=== PATIENT | male | born 1945 | race Caucasian/White ===

== ENCOUNTER → 2016-11-30 | Outpatient (CLI) | payer OTHER, BC ==
[~2016-11-30] MED LIST: ASPI81TA28 PO; CEFT1INJ57 IV; CLC100X PO; CRS/10 PO; CRS20 PO; CYCL5TAB PO; HYDR-5688 PO; METO25TA56 PO; NAPR-1169 PO
== END | disposition home or self-care (01) ==
LOC: C.LAB1850 10:09
PROVIDERS: ATTEND Internal Medicine Pulmonary Disease
DX: N40.0 Benign prostatic hyperplasia without lower urinary tract symptoms (principal); M25.539 Pain in unspecified wrist; M67.40 Ganglion, unspecified site

== ENCOUNTER 2016-12-22 16:20 | Emergency (ER) | payer OTHER, BC ==
[~2016-12-22] VITALS: Ht 177.8 cm; Wt 91.0 kg
[~2016-12-22 16:20] MED LIST changes: -CRS/10 PO
[2016-12-22 16:26] VITALS: TEMP 36.6; Ht 177.8 cm; Wt 91.0 kg
[2016-12-22] MEDS ORDERED: CEFAZOLIN IV 2,000 MG in DEXTROSE 5% 50ML 50 ML IV STA (16:28)
[2016-12-22] MEDS ORDERED: DIPHTHERIA/TETANUS/PERTUSSIS 0.5 ML SYR/VIAL IM. ONE (16:30)
[2016-12-22] MEDS ORDERED: FENTANYL CITRATE INJ 50 MCG/1 ML 2 ML VIAL IV ONE (16:30)
--- NOTE | 2016-12-22 16:39 | EMERGENCY ROOM VISIT NOTE ---
ED Visit Note First contact with patient: 16:27 CHIEF COMPLAINT: Finger injury HISTORY OF PRESENT ILLNESS: This 71-year-old male patient presents to the emergency department with his after injuring the right thumb approximately one hour ago. Patient states he was working on his tractor, caught the tip of his thumb in the hydraulics, causing a partial amputation. Patient states the tip of his thumb was left at home. Patient is actively bleeding from the thumb and holding pressure with his left hand.. The patient rates the pain as throbbing and 8/10. Patient denies numbness or tingling. She has no other injuries. The patient has not had previous fracture to this finger. The patient has taken nothing for the pain. Tetanus is not up-to-date. Patient is right-hand dominant. REVIEW OF SYSTEMS: A 6 system review of systems was completed with positives and pertinent negatives in the HPI. ALLERGIES: See chart MEDICATIONS: See chart PMH: See chart SOCIAL HISTORY: See chart PHYSICAL EXAM: Vital Signs: Reviewed Nurse's notes, vital signs stable. GENERAL : Pleasant and cooperative, in no acute distress, but appears to be in pain, well-developed, well-nourished. MUSCULOSKELETAL: There is partial indication of the distal portion of the right thumb, exposed bone and tendon, active bleeding but not pulsatile. The patient has intact flexion and intact extension of the right thumb, strength against resistance is diminished due to pain. Sensation intact on all aspects of the thumb, slightly diminished on the palmar side. No tenderness of the remaining fingers or hand. Full range of motion of the wrist. NEURO: Alert and oriented to person, place, and time. Normal sensation to light and sharp touch. EMERGENCY DEPARTMENT COURSE: I examined the patient. An x-ray of the right thumb was reviewed by myself and radiology and showed comminuted bone fragments of the distal phalanx with intra-articular fracture involving the proximal phalanx. IV was placed, 2 g IV Ancef given for treatment of open fracture, tetanus updated. Bleeding currently controlled with a pressure dressing. IV fentanyl given for pain with good improvement on reassessment. Patient discussed with Dr. Conteh, who agrees with my assessment and plan. I spoke with Dr. Ramos, orthopedics, who saw the patient at bedside for further management of the amputation, please see his dictation for further information of ongoing management and treatment. Take-Home packs of Keflex and Percocet provided to the patient at discharge per request of Dr. Ramos. Ongoing Rx provided by [facility]. DISPOSITION: Patient will most likely be discharged home after evaluation and treatment by orthopedics. Current/Historical Medications Scheduled Aspirin (Aspirin Ec), 81 MG PO DAILY Docusate Sodium (Docusate Sodium), 100 MG PO QPM Metoprolol Tartrate (Lopressor) (Lopressor), 12.5 MG PO BID Rosuvastatin Calcium (Crestor), 10 MG PO DAILY Allergies Coded Allergies: Thimerosal (Verified Allergy, Unknown, unk, 05/12/16) Vital Signs Date Time Temp Pulse Resp B/P (MAP) Pulse Ox O2 Delivery O2 Flow Rate FiO2 12/22/16 16:26 36.6 97 22 162/99 97 Room Air Laboratory Results 12/22/16 16:35 Red Blood Count 5.24, Mean Corpuscular Volume 92.2, Mean Corpuscular Hemoglobin 29.0, Mean Corpuscular Hemoglobin Concent 31.5, Mean Platelet Volume 9.3, Neutrophils (%) (Auto) 60.5, Lymphocytes (%) (Auto) 22.3, Monocytes (%) (Auto) 12.6, Eosinophils (%) (Auto) 3.6, Basophils (%) (Auto) 0.9, Neutrophils # (Auto ) 4.06, Lymphocytes # (Auto) 1.50, Monocytes # (Auto) 0.85, Eosinophils # (Auto ) 0.24, Basophils # (Auto) 0.06 12/22/16 16:35 Test 12/22/16 16:35 White Blood Count 6.72 K/uL (4.8-10.8) Red Blood Count 5.24 M/uL (4.7-6.1) Hemoglobin 15.2 g/dL (14.0-18.0) Hematocrit 48.3 % (42-52) Mean Corpuscular Volume 92.2 fL (80-100) Mean Corpuscular Hemoglobin 29.0 pg (25-34) Mean Corpuscular Hemoglobin Concent 31.5 g/dl (32-36) Platelet Count 230 K/uL (130-400) Mean Platelet Volume 9.3 fL (7.4-10.4) Neutrophils (%) (Auto) 60.5 % Lymphocytes (%) (Auto) 22.3 % Monocytes (%) (Auto) 12.6 % Eosinophils (%) (Auto) 3.6 % Basophils (%) (Auto) 0.9 % Neutrophils # (Auto) 4.06 K/uL (1.4-6.5) Lymphocytes # (Auto) 1.50 K/uL (1.2-3.4) Monocytes # (Auto) 0.85 K/uL (0.11-0.59) Eosinophils # (Auto) 0.24 K/uL (0-0.5) Basophils # (Auto) 0.06 K/uL (0-0.2) RDW Standard Deviation 44.9 fL (36.4-46.3) RDW Coefficient of Variation 13.2 % (11.5-14.5) Immature Granulocyte % (Auto) 0.1 % Immature Granulocyte # (Auto) 0.01 K/uL (0.00-0.02) Prothrombin Time 10.5 SECONDS (9.0-12.0) Prothromb Time International Ratio 1.0 (0.9-1.1) Activated Partial Thromboplast Time 28.5 SECONDS (21.0-31.0) Partial Thromboplastin Ratio 1.1 Anion Gap 9.0 mmol/L (3-11) Est Creatinine Clear Calc Drug Dose 79.4 ml/min Estimated GFR () 92.9 Estimated GFR (Non- 80.1 BUN/Creatinine Ratio 24.9 (10-20) Calcium Level 8.9 mg/dl (8.5-10.1) Medications Administered Medications (Trade) Dose Ordered Sig/Matthias Route Start Time Stop Time Status Last Admin Dose Admin Fentanyl Citrate (Fentanyl Inj) 50 mcg NOW ONCE IV 12/22/16 16:30 12/22/16 16:32 DC 12/22/16 16:40 50 MCG Cefazolin Sodium 2000 mg/Dextrose 60 ml @ 100 mls/hr NOW STAT IV 12/22/16 16:28 12/22/16 17:03 DC 12/22/16 16:57 100 MLS/HR Diphtheria/ Pertussis/Tetanus Vacc (Adacel Inj) 0.5 ml ONCE ONCE IM. 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 (PCP) Conor Ramos M.D. Patient Instructions ED Laceration Amputation Finger Tip Open Tx, [facility] Additional Instructions Follow-up with Dr. Ramos/Orthopedics in the office tomorrow. Call the office for appointment time. Keep the dressing clean and dry. Take antibiotics as prescribed. Please return to the ER for any signs of infection, severe worsening pain, significant bleeding from the wound, or any other concerns.
[2016-12-22 16:49] LABS: BASO % 0.9 %; BASO ABS # 0.06 K/uL (0-0.2); COMPLETE YES; EOS % 3.6 %; HEMATOCRIT 48.3 % (42-52); IG% 0.1 %; LYMPH % 22.3 %; MEAN CELL VOLUME 92.2 fL (80-100); MEAN CORPUSCULAR HGB CONC 31.5 g/dl (32-36); MEAN PLATELET VOLUME 9.3 fL (7.4-10.4); MONO % 12.6 %; NEUT % 60.5 %; PLATELET COUNT 230 K/uL (130-400); RED BLOOD COUNT 5.24 M/uL (4.7-6.1); WHITE BLOOD COUNT 6.72 K/uL (4.8-10.8)
[2016-12-22 17:00] LABS: PARTIAL THROMBOPLASTIN RATIO 1.1; PROTHROMBIN TIME (PATIENT) 10.5 SECONDS (9.0-12.0)
[2016-12-22] MEDS ORDERED: CRS/10 PO (17:02)
[2016-12-22 17:07] LABS: BUN/CREATININE RATIO 24.9 (10-20); CALCIUM 8.9 mg/dl (8.5-10.1); CREATININE 0.94 mg/dl (0.60-1.40); POTASSIUM 3.9 mmol/L (3.5-5.1)
--- NOTE | 2016-12-22 17:08 | DIAGNOSTIC IMAGING REPORT ---
RIGHT FINGER(S) MIN 2 VIEWS ROUTINE CLINICAL HISTORY: thumb amputation Right trauma COMPARISON: None. DISCUSSION: Comminuted fracture with substance loss distal phalanx of the right thumb. Soft tissue edema. No evidence of dislocation. IMPRESSION: Comminuted fracture distal phalanx of the thumb with associated bony substance loss Electronically signed by: Yefri Albarran M.D. 12/22/2016 5:07 PM Dictated Date/Time: 12/22/2016 5:05 PM
[2016-12-22] MEDS ORDERED: LIDO/EPINEPHRINE/SOD BICARB 20 ML VIAL INFIL ONE (17:21)
[2016-12-22] MEDS ORDERED: PERCOCET HOME PACK PO ONE (18:15)
[2016-12-22] MEDS ORDERED: CEPHALEXIN 500MG HOME PACK 1 EA BTL PO ONE (18:15)
[2016-12-22 18:57] VITALS: BP 108/68; PULSE 85; O2SAT 98
[2016-12-22] MEDS ORDERED: CEPHALEXIN MONOHYDRATE 500 MG CAP PO SCH (21:00)
--- NOTE | 2016-12-22 21:02 | ORTHOPEDIC CONSULTATION ---
DATE OF CONSULTATION: 12/22/2016 HISTORY OF PRESENT ILLNESS: I was consulted to see Mr. Garcia regarding an injury to his right dominant thumb. He is a 71-year-old gentleman who was working on his tractor, got his right thumb caught between the hydraulics resulting in a partial amputation. He does not have a prior history of thumb injuries and the injury happened a short time ago. He has received x-ray, antibiotics and tetanus from the Emergency Room. PAST MEDICAL HISTORY: Staph sepsis last year, followed by [facility]. He has high cholesterol. He is not a diabetic. SOCIAL HISTORY: He does not smoke. He drinks very rarely. MEDICATIONS: He takes aspirin and metoprolol. PAST SURGICAL HISTORY: He has had a cyst removed from his neck and a patch place for aortic aneurysm. ALLERGIES: He is not allergic to anything. IMAGING: Radiographs of the thumb show a partial amputation through the distal phalanx with a fracture. PHYSICAL EXAMINATION: On exam, he can flex and extend the thumb. There is more soft tissue loss volarly than there is dorsally. The amputation is just at the base of the nail. There is exposed bone and FPL tendon. I discussed with him the plan and options which include revision amputation through the IP joint, possibly into the proximal phalanx to obtain adequate soft tissue coverage. We discussed the possibility to transfer to a tertiary care center for a hand surgeon if he so desire. DESCRIPTION OF THE PROCEDURE: 8 mL of 1% lidocaine with epinephrine were injected for a digital block. A finger tourniquet was then applied. This is done after prepping the hand and creating a sterile field. I then excised the germinal matrix underneath the skin flap and then resected the remnant of the distal phalanx through the IP joint. The flexor tendon was holding on by a very few fibers. This was pulled in the field, amputated and allowed to retract. The distal phalanx was completely removed. The wound was then irrigated with 100 mL of sterile saline, part of this mixed with Betadine solution. I was then able to apply two horizontal mattress stitches centrally which reapproximated the edges. There was a slight bit of tension present centrally. Peripherally, I preserved the tissue which caused small dog ears to appear which I elected to leave rather than sacrifice other viable tissue. Several interrupted sutures were placed peripherally. After removal of a finger tourniquet, there was good bleeding and blanching within the skin and no abnormal pallor. Bleeding was controlled with pressure and a bulky soft sterile nonadherent dressing was applied. IMPRESSION: A revision amputation of the right thumb. PLAN: The patient will follow up in my office tomorrow. If he has any problems in the meantime will call my office or come back to the Emergency Room. We discussed the possibility that the nail may regrow and that there could be healing issues due to the coverage. I think that this was not under excessive tension. The edges were well approximated without substantial tension. He will be placed on Keflex and will also have a narcotic for pain medication. I recommend he also takes a stool softener. He is to elevate and ice, reinforce the dressing as needed. Keep clean and dry.
== END 2016-12-22 18:57 | disposition home or self-care (01) ==
LOC: C.EDD 16:22
DX: S68.521A Partial traumatic transphalangeal amputation of right thumb, initial encounter (principal); W23.0XXA Caught, crushed, jammed, or pinched between moving objects, initial encounter; Z23 Encounter for immunization

== ENCOUNTER → 2016-12-23 | Outpatient (CLI) | payer OTHER, BC ==
[~2016-12-23] MED LIST changes: -CEFT1INJ57 IV; +CRS/10 PO; -CRS20 PO; -CYCL5TAB PO; -HYDR-5688 PO; -NAPR-1169 PO
== END | disposition home or self-care (01) ==
LOC: C.RDSM 11:01
PROVIDERS: ATTEND Physical Medicine & Rehabilitation Sports Medicine
DX: M79.644 Pain in right finger(s) (principal)

== ENCOUNTER → 2017-04-18 | Outpatient (CLI) | payer OTHER, BC ==
[2017-04-18 13:25] LABS: BASO % 1.1 %; BASO ABS # 0.06 K/uL (0-0.2); COMPLETE YES; EOS % 4.3 %; HEMATOCRIT 47.7 % (42-52); IG% 0.5 %; LYMPH % 26.2 %; LYMPH ABS # 1.47 K/uL (1.2-3.4); MEAN CELL VOLUME 94.1 fL (80-100); MEAN CORPUSCULAR HGB CONC 31.9 g/dl (32-36); MEAN PLATELET VOLUME 9.6 fL (7.4-10.4); MONO % 12.7 %; NEUT % 55.2 %; PLATELET COUNT 225 K/uL (130-400); RED BLOOD COUNT 5.07 M/uL (4.7-6.1); WHITE BLOOD COUNT 5.61 K/uL (4.8-10.8)
[2017-04-18 14:21] LABS: ALT/SGPT 32 U/L (12-78); AST/SGOT 25 U/L (15-37); BLOOD UREA NITROGEN 17 mg/dl (7-18); BUN/CREATININE RATIO 21.7 (10-20); CALCIUM 9.1 mg/dl (8.5-10.1); CARBON DIOXIDE 29 mmol/L (21-32); CHLORIDE 108 mmol/L (98-107); GLUCOSE 84 mg/dl (70-99); POTASSIUM 4.3 mmol/L (3.5-5.1); SODIUM 143 mmol/L (136-145)
[2017-04-18 14:23] LABS: ALB/GLOB RATIO 1.3 (0.9-2); ALKALINE PHOSPHATASE 95 U/L (45-117); CHOLESTEROL 156 mg/dl (0-200); HDL CHOLESTEROL 52 mg/dl; LDL CHOLESTEROL CALCULATED 89 mg/dl; TRIGLYCERIDES 74 mg/dl (0-150); VERY LOW DENSITY LIPOPROT CALC 15 mg/dl
== END | disposition home or self-care (01) ==
LOC: C.LAB1850 12:24
PROVIDERS: ATTEND Internal Medicine Pulmonary Disease
DX: Z00.00 Encounter for general adult medical examination without abnormal findings (principal); E78.5 Hyperlipidemia, unspecified; N40.0 Benign prostatic hyperplasia without lower urinary tract symptoms

== ENCOUNTER 2022-01-04 08:12 | Observation (INO) ==
--- NOTE | 2021-11-23 10:07 | PAT Medication Instructions ---
Medication Instructions Date of Service November 23, 2021 Home Medications Medication Instructions Recorded sildenafil 100 mg tablet 100 mg PO DAILY PRN #20 tab 04/16/21 valacyclovir 500 mg tablet 500 mg PO BID PRN #10 tab 10/01/21 (Valtrex) metoprolol tartrate 25 mg tablet 12.5 mg PO BID #90 tab 11/16/21 docusate sodium 100 mg capsule (Colace) 100 mg PO QAM polyethylene glycol 3350 17 gram/dose oral powder (Miralax) 17 g PO DAILY PRN aspirin 81 mg tablet,delayed release 81 mg PO QPM sildenafil 100 mg tablet 100 mg PO DAILY PRN valacyclovir 500 mg tablet (Valtrex) 500 mg PO BID PRN metoprolol tartrate 25 mg tablet 12.5 mg PO BID pantoprazole 40 mg tablet,delayed release 40 mg PO QAM rosuvastatin 20 mg tablet 10 mg PO HS DO NOT take the morning of surgery docusate sodium 100 mg capsule (Colace) 100 mg PO QAM polyethylene glycol 3350 17 gram/dose oral powder (Miralax) 17 g PO DAILY PRN sildenafil 100 mg tablet 100 mg PO DAILY PRN Take morning of surgery With a small sip of water, OTHERWISE NOTHING TO EAT OR DRINK AFTER MIDNIGHT: valacyclovir 500 mg tablet (Valtrex) 500 mg PO BID PRN (if needed) metoprolol tartrate 25 mg tablet 12.5 mg PO BID pantoprazole 40 mg tablet,delayed release 40 mg PO QAM Take evening before surgery polyethylene glycol 3350 17 gram/dose oral powder (Miralax) 17 g PO DAILY PRN (if needed) aspirin 81 mg tablet,delayed release 81 mg PO QPM (continue as normal unless told otherwise by surgeon) sildenafil 100 mg tablet 100 mg PO DAILY PRN (if needed) valacyclovir 500 mg tablet (Valtrex) 500 mg PO BID PRN (if needed) metoprolol tartrate 25 mg tablet 12.5 mg PO BID rosuvastatin 20 mg tablet 10 mg PO HS Other Notes If you have any questions please call us at [phone] or [phone] or [phone] or [phone]
--- NOTE | 2021-11-25 14:25 | Anesthesiology Consultation ---
Date of Service November 25, 2021 Assessment & Plan (1) Encounter for pre-operative examination: - Patient scheduled to see cardiology for routine appt prior to surgery. Awaiting office visit note ([facility] [place] [facility] cardiology; 12/09). - COVID screening: Per assessment on 11/25: No known COVID-19 positive contacts or current COVID-19 related symptoms. Travel screen negative x 2+ weeks. Surgeon arranging preop COVID testing (scheduled 01/03- day prior to surgery). Patient will be out of town for memorial service (not out of state) the few days leading up to surgery (no large gathering, pt states he will follow covid precaution guidelines during travel service including masking and social distancing). Pt aware that will likely not be able to get surgery time until morning of surgery due to proximity of testing to DOS). Awaiting results. - Moderate aortic stenosis: Bicuspid aortic valve with oderate aortic stenosis (MICHELE 1.5 cm, MG 6.8 mmHg) per 11/17/21 echo. Discussed SAB vs. GA. At anesthesiologist discretion AM DOS regarding anesthetic type. Chart Review Chart Review: Patient seen in Pre Admission Testing Teaching & Discussion Pre-Anesthesia Teaching/Discussion Notes: Instructed NPO after midnight before surgery,except medications with 15 cc of water. Medication instructions provided according to the PAT guidelines. History Surgery Operation Date: 01/04/22 08:50 Proposed Procedures p Left Total Knee Arthroplasty - Sang Salazar MD Height/Weight Height: 5 ft 9 in Weight: 88.8 kg Allergies Allergy/AdvReac Type Severity Reaction Status Date / Time thimerosal Allergy Rash Verified 11/25/21 15:37 [From Merthiolate (thimerosal)] Medications Home Medications Medication Instructions Recorded Confirmed Last Taken docusate sodium 100 mg capsule 100 mg PO QAM 05/19/19 11/22/21 11/22/20 09:00 (Colace) polyethylene glycol 3350 17 17 g PO DAILY PRN 05/19/19 11/22/21 11/22/20 09:00 gram/dose oral powder (Miralax) aspirin 81 mg tablet,delayed 81 mg PO QPM 11/20/20 11/22/21 11/22/20 09:00 release sildenafil 100 mg tablet 100 mg PO DAILY PRN #20 tab 04/16/21 11/22/21 Unknown valacyclovir 500 mg tablet 500 mg PO BID PRN #10 tab 10/01/21 11/22/21 Unknown (Valtrex) metoprolol tartrate 25 mg tablet 12.5 mg PO BID #90 tab 11/16/21 11/22/21 Unknown pantoprazole 40 mg tablet,delayed 40 mg PO QAM 11/22/21 11/22/21 Unknown release rosuvastatin 20 mg tablet 10 mg PO HS 11/22/21 11/22/21 Unknown Past Medical History Medical History Aortic stenosis Bicuspid aortic valve. Moderate aortic stenosis (MICHELE 1.5 cm, MG 6.8 mmHg). 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 Bicuspid aortic valve Constipation Degenerative arthritis of knee, bilateral History of gastric ulcer History of melanoma HLD (hyperlipidemia) CHEESH-NA (hard of hearing) left HTN (hypertension) Osteoarthritis Schatzki's ring "Mild" in the distal esophagus Exercise / Class Metabolic Activity II 4-5 Yardwork/Stairs/Walk up hill (one FS (no CP, no SOB)) Past Family History Family History Other COPD (chronic obstructive pulmonary disease) Coronary heart disease No family history of adverse response to anesthesia Prostate cancer Stroke Past Surgical History Surgical History H/O colonoscopy H/O hernia repair Rt inguinal H/O shoulder surgery Rt H/O: hemorrhoidectomy History of esophageal dilatation History of melanoma excision History of tonsillectomy and adenoidectomy Hx of esophagogastroduodenoscopy Status post aortic arch reconstruction Aortic root replacement (2013) Past Anesthesia History No Hx of Anesthesia Complications and No Family Hx of Anesthesia Complications History of PONV No Hx of PONV and No Hx of Motion Sickness Social History Smoking Status: Never smoker Do You Dip or Chew Tobacco: No Hx Alcohol Use: Yes Alcohol type: beer, wine and hard liquor alcohol intake frequency: a few times a month Hx Substance Use: No substance use type: does not use Review of Systems Patient denies chest pain, shortness of breath, dyspnea on exertion, fever, chills, cough, wheezing, palpitations. Physical Exam Vital Signs VITALS BP 134/75 P 65 TEMP 98.3 SP02 95%RA RESP 16 PHYSICAL Full cervical extension range of motion. Full TMJ range of motion. TMD 3 finger breaths Mallampati Score 2 Dentition: intact, several crowns Lungs: clear throughout to auscultation Cardiac: regular rate and rhythm, III/ systolic murmur Spine: normal Carotid arteries: negative bruit Extremities: no edema Lab Results Anesthesia Preop Results Results Anesthesia Widget: WBC 7.00 K/uL (4.8-10.8) 11/25/21 Hgb 14.7 g/dL (14.0-18.0) 11/25/21 Hct 44.7 % (42-52) 11/25/21 Plt 245 K/uL (130-400) 11/25/21 Na 143 mmol/L (136-145) 11/25/21 K 3.8 mmol/L (3.5-5.1) 11/25/21 Cl 108 mmol/L (98-107) H 11/25/21 CO2 29 mmol/L (21-32) 11/25/21 BUN 18 mg/dl (6-23) 11/25/21 Creat 0.93 mg/dl (0.6-1.4) 11/25/21 Glucose Level 123 mg/dl (70-99(Fasting)) H 11/25/21 PT 10.8 Seconds (9.0-12.0) 11/25/21 PTT 29.3 Seconds (21.0-31.0) 11/25/21 INR 1.0 (0.9-1.1) 11/25/21 Blood Type O Positive 11/25/21 Antibody Screen NEGATIVE 11/25/21 Testing Electrocardiogram Date: 11/25/21 Normal sinus rhythm at 62 bpm. Minimal voltage criteria for LVH, may be normal variant. Nonspecific T wave abnormality. Unconfirmed report. Chest X-Ray Date: 11/25/21 FINDINGS: The cardiac silhouette is enlarged. Prior median sternotomy. There is no pneumothorax, pleural effusion, airspace consolidation or overt pulmonary edema. Eventration of the right hemidiaphragm. The chronic right middle lobe pulmonary nodule is not well seen by radiography. Degenerative changes of the shoulders and spine. IMPRESSION: No acute process. Echocardiogram Date: 11/17/21 EF 55-60%. No regional motion abnormality. Bicuspid aortic valve. Moderate aortic stenosis (MICHELE 1.5 cm, MG 6.8 mmHg). Mild RAD. Mild MR. Prosthetic aor tic root graft intact. Mild progression of aortic stenosis and mild increase in LVH compared to 11/22/2017 study.
--- NOTE | 2022-01-01 14:42 | History and Physical Report ---
CHIEF COMPLAINT: Bilateral knee pain and discomfort, left side greater than right. HISTORY OF PRESENT ILLNESS: The patient is a 76-year-old gentleman who presents for treatment of his knees. He has a long history of bilateral knee pain and discomfort, left side greater than right. He has been through extensive conservative treatment in the past, mostly involving injections, which provided temporary relief, but it has become less successful over time. The left knee bothers him mo re than the right. He continues to try and play basketball when he is down in [place] 6 months of , but having more and more difficulty doing this. That is his major form of exercise. He woul d like to get back to that. He has global pain. The more he is up and on his knees, the more they h urt. He limps more as the day goes on. PAST MEDICAL HISTORY: 1. Colonoscopy. 2. Hernia repair. 3. Shoulder surgery. 4. Hemorrhoid surgery. 5. Melanoma resection. 6. Tonsillectomy. 7. Aortic arch reconstruction. ALLERGIES: None. CURRENT MEDICATIONS: 1. Colace. 2. Aspirin. 3. Metoprolol. 4. Pantoprazole. 5. MiraLax. 6. Rosuvastatin. 7. Sildenafil. 8. Valtrex. SOCIAL HISTORY: A 75-year-old male. Very active. He enjoys playing recreational basketball. He li ves half the year in [place] and a half the year in [place]. He is . FAMILY HISTORY: Noncontributory. REVIEW OF SYSTEMS: Negative for diabetes, neurologic problem, vascular problem, or bleeding disorder s. No chest pain or shortness of breath. No history of DVT or PE. PHYSICAL EXAMINATION: Examination of both knees revealed patient walks with a bit of varus alignment to both knees. He is tender over the medial joint line bilaterally. Small to moderate-sized knee e ffusion bilaterally. Range of motion is symmetric with near full extension to 120 degrees of flexion . He has no pain with hip motion. X-RAYS: X-rays of both knees reveal advanced bilateral knee degenerative joint disease. He has comp lete loss of medial joint space with subchondral sclerosis and medial osteophytes. ASSESSMENT: A 76-year-old male with advanced bilateral knee degenerative joint disease. He has fail ed conservative measures. He would now like to proceed with knee replacement. He would like to get back to his normal activities. PLAN: We are going to proceed with left knee replacement. The risks and benefits of this procedure were explained to the patient include but not limited to DVT, PE, , infection, neurological inju ry, vascular injury, bleeding problem, pain, limited range of motion, stiffness, failure to relieve h is symptoms, need for revision surgery, etc. The patient understands and desires to proceed. Inform ed consent was obtained. The patient will be planning on staying in the hospital overnight. Hopefully, we can discharge him p ostoperative day with some home health using [facility]. He knows to take his metoprolol the morning of surgery with a sip of water. Pretty much hold everything else. Job ID: [id number]
[~2022-01-04 08:12] MED LIST changes: +ACETAMINOPHEN 500 MG TAB PO SCH; -ASPI81TA28 PO; +BUPIVACAINE 0.5 % 5 MG/1 ML PF 10ML VIAL ONE; +BUPIVACAINE LIPOSOME/PF 266 MG, BUPIVACAINE/EPINEPHRINE 50 ML, SODIUM CHLORIDE 0.9% 30 ... INFIL SCH; -CLC100X PO; -CRS/10 PO; +CeleBREX 200 MG CAP PO SCH; +EPINEPHrine INJ 1 MG/ML AMP ONE; +FAMOTIDINE 20 MG TAB PO SCH; +LR 15ML/HR IV SCH; +LR 60ML/HR IV SCH; -METO25TA56 PO; +ROPIVACAINE 0.5% 5 MG/ML 30 ML VIAL ONE; +TRANEXAMIC ACID 1,000 MG **IV Intra-op IV SCH; +ceFAZolin 2000MG 2,000 MG/15 ML SYR IV SCH
--- NOTE | 2022-01-04 08:39 | History & Physical Bridge Note ---
Date of Service January 04, 2022 History & Physical Bridge Note I have examined the patient, reviewed the History & Physical and in the interval since the performance of the History & Physical I have noted the following changes of clinical significance: no changes noted
[2022-01-04] MEDS ORDERED: MIDAZOLAM HCL 1 MG/ML 2ML VIAL ONE (09:35)
[2022-01-04] MEDS ORDERED: fentaNYL citrate 100 MCG/2 ML VIAL ONE (09:36)
[2022-01-04] MEDS ORDERED: BUPIVACAINE/EPINEPHRINE 0.25% 1:200,000 30 ML VIAL ONE (10:40)
[2022-01-04] MEDS ORDERED: SODIUM CHLORIDE 0.9% PF 50 ML VIAL ONE (10:40)
[2022-01-04] MEDS ORDERED: BUPIVACAINE LIPOSOME 1.3% 266 MG/20 ML VIAL ONE (10:40)
[2022-01-04] MEDS ORDERED: LIDOCAINE 2% 2 ML VIAL/AMP(20MG/ML) INFIL ONE (11:14)
[2022-01-04] MEDS ORDERED: ONDANSETRON INJ 2 MG/ML 2 ML VIAL ONE (11:27)
[2022-01-04] MEDS ORDERED: PROPOFOL IV EMULSION 10 MG/ML 20 ML VIAL IV ONE (11:30)
[2022-01-04] MEDS ORDERED: ePHEDrine sulfate 50 MG/ML AMP ONE (12:22)
--- NOTE | 2022-01-04 12:53 | Operative Report ---
PG Post Operative Report Pre & Post Diagnosis Operation Date: 01/04/22 10:40 Pre-Op Diagnosis: Left Knee Advanced Degenerative Joint Disease Post-Op Diagnosis: Left Knee Advanced Degenerative Joint Disease I identified the patient and participated in the time-out.: Yes Procedure Operation Date: 01/04/22 10:40 Actual Procedures p Left Total Knee Arthroplasty(Left) - Sang Salazar MD Surgeon Sang Salazar MD Pipe Bowls Paint Trimmer Myles Bennett PA-C Estimated Blood Loss 50 Findings Consistent with Post-Op Diagnosis Operative findings revealed advanced left knee DJD. He had pretty extensive diffuse grade 4 changes of the medial and patellofemoral compartments. Lateral compartment showed some fairly mild wear. Moderate-sized joint effusion and a varus deformity to his knee. Fluids 1400 cc Specimens Left knee sent for pathology Drains None Anesthesia Type Spinal MAC Complications none Disposition Accompanied Patient To Recovery: Yes Indications Patient is 76-year-old very active gentleman who has had a several year history of increasing bilateral knee pain discomfort the left side bit worse than the right. Very active and plays basketball when he goes down to [place] in 6 months of the year. Has been less able to do to his knee pain. Both knees hurt. Left is worse than the right. He failed conservative measures and elected proceed with left total knee arthroplasty. Description of Procedure Operative implants consist of: 1 Biomet Vanguard size 72.5 left posterior stabilized femoral component. 2. Biomet size 83 tibial tray. 3. 10 mm posterior stabilized polyethylene insert. 4. 34 x 8 and half all Paller patella. The patient was taken the operating, identified, and placed on the operating table supine position protectors were properly padded. IV antibiotics tried by anesthesia team. Spinal anesthetic and been implemented in the holding area along with an abductor canal block. A Lea catheter was placed in sterile fashion. Left thigh turn was then placed in the left lower extremities and prepped and draped in usual sterile fashion. The left leg was elevated exsanguinated with use of an Esmarch and the tourniquet was set at 300 mmHg. An anterior approach left knee was then performed to longitudinal incision centered over the patella. Sharp dissection Through subcutaneous tissue down the extensor mechanism. A medial parapatellar arthrotomy incision was made. Some subperiosteal dissection was carried out medially. The fat pad was resected beneath patella tendon. Lateral patellofemoral ligament was released. Patella subluxated laterally and the knee was flexed. The osteophyte taken off distal femur. The ACL and PCL were then released from distal femur the tibia subluxated anteriorly. The external tibial alignment jig was then placed the interface the tibia and adjusted 16 mm medially. Proximal tibial cut was made removed by millimeter bone from the most deficient aspect of the medial tibial plateau. The tibia was sized to a size 83. Some osteophytes taken off medial and posterior medially. Attention drawn the femur. The distal femur during the sharp drill. Intramedullary canal was suction. A left 6 degree valgus cutting guide was placed. The distal femoral cutting block was pinned in place. Distal femoral cut was made to take an additional 3 mm of bone off distal femur. The femur was then sized to a size 72.5. The AP cutting block was pinned parallel to the epicondylar axis which was 5 degrees of external rotation. The anterior cut, anterior chamfer, posterior cut, posterior chamfer cuts were made. The box cutting guide was placed in just slight lateral box cut was made. The knee was flexed. The remnants of the medial and lateral menisci were excised. The osteophytes taken off the posterior aspect the femur. A trial femoral component was placed. The tibial tray was pinned in in maximum external rotation and the drill and stem punch were used to create defect in proximal tibia for the tibial tray. The knee was then trialed and the 10 mm insert fit most appropriately. Attention drawn the patella. The patella was cleaned of all soft tissues. Patella thickness measured 25 mm in thickness cut down to 15. Was sized to a size 34 patella. The lug holes were drilled for the 34 patella. The lateral osteophyte is moved. Patella button was placed. Knee was taken through range of motion and the patella tracked nicely with no thumbs test. Attention drawn to place the permanent components. All trial components were removed. A bone plug was placed in the distal femur limit blood loss. Double batch Palacos G cement was mixed. A Biomet Vanguard size 72.5 left posterior stabilized femoral component, a size 683 tibial tray, 10 mm posterior stabilized polyethylene insert, and a 34 x 8 and half all Paller patella then cemented in place. Knee was brought out into full extension total cement hardened. Final cement check was then performed. The pericapsular tissues were injected with a total 100 cc of combination of 20 cc of Exparel, 30 cc normal saline, 50 cc of quarter percent Marcaine with epinephrine. Patient did receive 1 g tranexamic acid. The tourniquet was then let down for final tourniquet time of 57 minutes. Hemostasis reduced electrocautery. Extensor mechanism closed with combination 1 PDS suture and #1 Vicryl suture in [id number] fashion with extensor mechanism checked found to be intact the subcutaneous tissue was then closed with 2 Dexon suture in a buried interrupted fashion skin was closed skin sohan. Leg was then cleaned and dried and sterile dressed with Xeroform, 4 fours, sterile cast padding, Eladio bandage were applied. The patient then transferred to the recovery room in stable condition. Patient tolerated procedure well and there were no complications. Myles Bennett, my physician pediatric physician assistant, was present for the entire procedure. His assistance was essential and required for appropriate patient positioning, prepping and draping, surgical exposure, performing the technical details of the operation, placement the implants, closure of the wound, and placement of the sterile bandage. I attest to the content of the Intraoperative Record and any orders documented therein. Any exceptions are noted below.
[2022-01-04] MEDS ORDERED: FLUMAZENIL 0.1 MG/1 ML 10 ML VIAL IV PRN (13:03)
[2022-01-04] MEDS ORDERED: HYDROmorphone INJ 1 MG/ML SYRINGE IV PRN (13:03)
[2022-01-04] MEDS ORDERED: ATROPINE SULFATE 0.1 MG/ML 10ML SYR IV PRN (13:03)
[2022-01-04] MEDS ORDERED: PROMETHAZINE HCL 12.5 MG in SODIUM CHLORIDE 0.9% 50 ML IV PRN (13:03)
[2022-01-04] MEDS ORDERED: ONDANSETRON INJ 2 MG/ML 2 ML VIAL IV PRN ×2 (13:03→15:39)
[2022-01-04] MEDS ORDERED: fentaNYL citrate 100 MCG/2 ML VIAL IV PRN (13:03)
[2022-01-04] MEDS ORDERED: ePHEDrine sulfate 50 MG/ML AMP IV PRN (13:03)
[2022-01-04] MEDS ORDERED: LABETALOL HCL IV 5 MG/ML 20ML IV PRN (13:03)
[2022-01-04] MEDS ORDERED: NALOXONE HCL 0.4 MG/1 ML VIAL/CARP IV PRN ×2 (13:03→15:39)
--- NOTE | 2022-01-04 13:13 | XRay Report ---
XR knee LT 1 or 2V routine CLINICAL HISTORY: Surgical Post Op TECHNIQUE: 2 views of the left knee were obtained. Comparison: None available at the time of this dictation. FINDINGS: Patient is status post total knee arthroplasty with expected postsurgical changes including soft tiss ue swelling, subcutaneous emphysema, and surgical staple placement. No periarticular lucency or hardw are fracture is seen. IMPRESSION: Expected postoperative appearance status post placement of total knee arthroplasty. ACT 112: Negative or not required by law. Electronically signed by: Charan Vyas M.D. 01/04/2022 1:12 PM
--- NOTE | 2022-01-04 15:04 | Anesthesiology Progress Note ---
Date of Service January 04, 2022 Anesthesia Post Procedure Vital Signs Vital Signs: Temp Pulse Pulse Resp BP Pulse Ox 01/04/22 15:00 59 L 13 130/73 94 01/04/22 14:50 59 L 10 L 137/70 93 01/04/22 14:40 60 16 118/71 95 01/04/22 14:30 60 16 117/73 96 01/04/22 14:20 56 L 14 111/76 95 01/04/22 14:10 58 L 14 122/73 94 01/04/22 14:00 61 13 124/67 96 01/04/22 13:50 60 14 110/71 95 01/04/22 13:40 68 14 113/60 95 01/04/22 13:30 70 12 106/64 96 01/04/22 13:20 68 15 106/63 92 01/04/22 13:10 77 17 106/60 94 01/04/22 13:00 69 18 93/54 L 95 01/04/22 12:50 71 17 106/50 L 100 01/04/22 12:43 36.1 C L 80 13 104/60 98 01/04/22 08:52 36.6 C 58 L 18 137/86 97 Transfer of Care Handoff Completed per policy Notes Mental Status: alert / awake / arousable Patient Amnestic to Procedure: Yes Nausea / Vomiting: adequately controlled Pain: adequately controlled Airway Patency, RR, SpO2: stable & adequate BP & HR: stable & adequate Hydration State: stable & adequate Neuraxial Anesthesia: was administered and sensory block is resolving Anesthetic Complications: no major complications apparent
[2022-01-04] MEDS ORDERED: bisacodyL 10 MG SUPP PR PRN (15:39)
[2022-01-04] MEDS ORDERED: MAGNESIUM HYDROXIDE SUSP 30 ML UDC PO PRN (15:39)
[2022-01-04] MEDS ORDERED: METOCLOPRAMIDE HCL INJ 5 MG/ML 2 ML VIAL IV PRN (15:39)
[2022-01-04] MEDS ORDERED: NON-FORMULARY MEDICATION (Sildenafil 100 mg tablet) PO PRN (15:39)
[2022-01-04] MEDS ORDERED: HYDROmorphone INJ 0.5 MG/0.5 ML SYR IV PRN (15:39)
[2022-01-04] MEDS ORDERED: oxyCODONE HCL IR 5 MG TAB (IMMEDIATE RELEASE) PO PRN (15:39)
[2022-01-04] MEDS ORDERED: POLYETHYLENE (MIRALAX) 17 GM PACK PO PRN (15:39)
[2022-01-04] MEDS ORDERED: ALUMINUM/MAGNESIUM SUSP 30 ML UDC PO PRN (15:39)
[2022-01-04] MEDS ORDERED: SODIUM CHLORIDE 0.9% 1000ML 1,000 ML IV SCH (16:00)
[2022-01-04] MEDS: ASCORBIC ACID 500 MG TAB PO SCH (16:49)
[2022-01-04] MEDS: ACETAMINOPHEN 500 MG TAB PO SCH ×2 (16:50→21:04)
[2022-01-04] MEDS: KETOROLAC TROMETHAMINE 15 MG/ML VIAL IV SCH ×2 (16:50→21:04)
[2022-01-04] MEDS: ceFAZolin 2000MG 2,000 MG/15 ML SYR IV SCH (18:25)
[2022-01-04] MEDS ORDERED: TRANEXAMIC ACID / 0.7% NACL 1,000 MG/100 ML BAG IV SCH (19:00)
[2022-01-04] MEDS: METOPROLOL TARTRATE 25 MG TAB PO SCH (20:05)
[2022-01-04] MEDS: ROSUVASTATIN CALCIUM 20 MG TAB PO SCH (20:05)
[2022-01-04] MEDS: SENNA 8.6 MG TAB PO SCH (20:06)
[2022-01-04] MEDS: ASPIRIN 81 MG ECTAB PO SCH (20:06)
[2022-01-04] MEDS: DOCUSATE SODIUM 100 MG CAP PO SCH (20:06)
[2022-01-05] MEDS: KETOROLAC TROMETHAMINE 15 MG/ML VIAL IV SCH ×4 (02:31→20:24)
[2022-01-05] MEDS: ceFAZolin 2000MG 2,000 MG/15 ML SYR IV SCH (02:31)
[2022-01-05] MEDS: ACETAMINOPHEN 500 MG TAB PO SCH ×3 (05:14→20:24)
[2022-01-05] MEDS ORDERED: dexAMETHasone 10 MG in SYRINGE 0 ML IV SCH (08:00)
[2022-01-05] MEDS: SODIUM CHLORIDE 0.9% 500 ML IV SCH ×2 (08:02→08:33)
[2022-01-05 08:17] LABS: BUN Creatinine Ratio 21.7 (10-20); Calcium 8.2 mg/dl (8.5-10.1); Creatinine Clr Calc Pharmacy 97.5 ml/min; Est GFR (African American) 105.4 ml/min; Est GFR (Non-African American) 90.9 ml/min; Potassium 3.9 mmol/L (3.5-5.1)
[2022-01-05 08:25] LABS: Hematocrit (blood only) 37.7 % (42-52); Hemoglobin 12.4 g/dL (14.0-18.0); Mean Corpuscular Hemoglobin 31.3 pg (25-34); Mean Corpuscular Hgb Conc 32.9 g/dL (32-36); Mean Corpuscular Volume 95.2 fL (80-100); Mean Platelet Volume 9.6 fL (7.4-10.4); Platelet Count 219 K/uL (130-400); RDW Coefficient of Variation 13.1 % (11.5-14.5); RDW Standard Deviation 45.9 fL (36.4-46.3); Red Blood Count 3.96 M/uL (4.7-6.1); White Blood Count 8.18 K/uL (4.8-10.8)
[2022-01-05] MEDS: MULTIVITAMIN TAB PO SCH (08:36)
[2022-01-05] MEDS: ASPIRIN 81 MG ECTAB PO SCH ×2 (08:36→20:24)
[2022-01-05] MEDS: METOPROLOL TARTRATE 25 MG TAB PO SCH ×2 (08:36→20:22)
[2022-01-05] MEDS: ASCORBIC ACID 500 MG TAB PO SCH ×2 (08:36→17:02)
[2022-01-05] MEDS: TAMSULOSIN HCL 0.4 MG CAP PO SCH (08:37)
[2022-01-05] MEDS: DOCUSATE SODIUM/SENNA 50/8.6MG TAB PO SCH (08:38)
[2022-01-05] MEDS: DOCUSATE SODIUM 100 MG CAP PO SCH ×2 (08:38→20:23)
[2022-01-05] MEDS: PANTOprazole 40 MG TAB PO SCH (08:44)
[2022-01-05] MEDS ORDERED: DOCUSATE SODIUM 100 MG CAP PO SCH (09:00)
--- NOTE | 2022-01-05 14:03 | Orthopedic Progress Note ---
Date of Service January 05, 2022 Assessment & Plan (1) Status post total left knee replacement: He was seen and examined by Dr. Salazar today. Pain is reasonably controlled. Continue current management dvt prophylaxis: teds, scd's, and aspirin discharge planning: likely discharge home with home health tomorrow PT/OT wbat. Subjective . 76 year old patient POD #1 from left tka. Having some pain with the knee but reasonably controlled. He had some dizziness earlier in the day but that seems to be improving. Denies chest pain/shortness of breath. Review of Systems All systems reviewed & are unremarkable except as noted in HPI & below. Physical Exam . alert and oriented. NAD Left leg: dressing clean, dry, intact. Able to dorsiflex/plantarflex, and move toes appropriatley. NVI. Difficulty doing straight leg raise/extending knee. VSS Results & Data Results & Data Laboratory Results . Diagnostic Findings . PG Care Time/CCT Total # of Minutes Spent Total Time Spent with Patient: Total time spent is greater than 50% in coordination of care (as documented) at patient's floor/unit and/or counseling patient: Coding Level of Care Code 80209 Post Operative Follow-Up Diagnoses Status post total left knee replacement Z96.652
[2022-01-05] MEDS: SENNA 8.6 MG TAB PO SCH (20:22)
[2022-01-05] MEDS: ROSUVASTATIN CALCIUM 20 MG TAB PO SCH (20:23)
[2022-01-06] MEDS: KETOROLAC TROMETHAMINE 15 MG/ML VIAL IV SCH ×2 (05:47→10:16)
[2022-01-06] MEDS: ACETAMINOPHEN 500 MG TAB PO SCH ×2 (05:47→14:37)
[2022-01-06] MEDS: ASPIRIN 81 MG ECTAB PO SCH (09:08)
[2022-01-06] MEDS: DOCUSATE SODIUM/SENNA 50/8.6MG TAB PO SCH (09:09)
[2022-01-06] MEDS: TAMSULOSIN HCL 0.4 MG CAP PO SCH (09:09)
[2022-01-06] MEDS: DOCUSATE SODIUM 100 MG CAP PO SCH (09:09)
[2022-01-06] MEDS: METOPROLOL TARTRATE 25 MG TAB PO SCH (09:10)
[2022-01-06] MEDS: PANTOprazole 40 MG TAB PO SCH (09:10)
[2022-01-06] MEDS: MULTIVITAMIN TAB PO SCH (09:10)
[2022-01-06] MEDS: ASCORBIC ACID 500 MG TAB PO SCH (10:13)
--- NOTE | 2022-01-06 11:05 | Progress Notes ---
DATE OF SERVICE: 01/06/2022. SUBJECTIVE: A 76-year-old gentleman now postop day 2 from a left knee replacement. He is doing quit e a bit better today. Pain is controlled. He is getting around better. No chest pain or shortness of breath. Not feeling dizzy or lightheaded. Feels like he is hoping to go home. OBJECTIVE: VITAL SIGNS: Temperature is 36.6. Vital signs are stable. PHYSICAL EXAMINATION: GENERAL: Shows a pleasant middle-aged male. He is sitting up in bed and looks pretty comfortable th is morning. EXTREMITIES: Examination of the left leg reveals the dressing to be clean, dry and intact. He can d orsiflex and plantarflex his foot appropriately. He is neurologically intact. He cannot quite do a straight leg raise. ASSESSMENT: A 76-year-old gentleman postoperative day 2 from a left knee replacement, doing pretty w ell. He is doing quite a bit better today. Pain is controlled. He is neurologically intact. PLAN: 1. DVT prophylaxis includes thigh-high TEDs, SCDs, and aspirin twice a day. 2. PT, OT, weightbear as tolerated. Left total knee protocol. 3. Pain control, doing okay with current pain regimen. 4. Disposition: Plan to discharge to home with some home health later today if he does okay in ther apy. Job ID: [id number]
== END 2022-01-06 17:39 | disposition home health service (06) ==
LOC: 3E 08:12 → ASU 08:12
DX: M65.88 Other synovitis and tenosynovitis, other site; E78.5 Hyperlipidemia, unspecified; Z79.899 Other long term (current) drug therapy; M17.12 Unilateral primary osteoarthritis, left knee; Z79.82 Long term (current) use of aspirin; I10 Essential (primary) hypertension; Z88.3 Allergy status to other anti-infective agents

== ENCOUNTER 2022-03-10 05:14 | Observation (INO) ==
--- NOTE | 2022-03-01 10:42 | Anesthesiology Consultation ---
Date of Service March 01, 2022 Assessment & Plan (1) Encounter for pre-operative examination: Chart Review Chart Review: Acceptable Risk for Surgery and Patient NOT seen in Pre Admission Testing -Due to age- patient is NOT a OPJ candidate -Moderate aortic stenosis:Bicuspid aortic valve with moderate aortic stenosis (MICHELE 1.5 cm, MG 6.8 mmHg) per 11/17/21 echo. SAB vs. GA- at anesthesiologist discretion AM DOS regarding anesthetic type. Per nursing assessment 03/01/22, pt traveled to [facility] at a [place] in [place] within the last month- traveled with via car. No known Covid positive exposures or Covid related symptoms. No known Covid infection in the past 90 days. Pt is fully vaccinated for Covid. Preop Covid testing to surgeon's discretion. Left TKA 01/04/22= Done under SAB at L4-5 x 5 attempts. -Cardiology office visit (12/09/21) (prior to left TKA): "76-year-old man status post aortic root replacement 8 years ago who is doing very well clinically. Aortic valve was not replaced due to evidence of only mild stenosis on echocardiogram and visual inspection. Recent echocardiogram shows that his aortic stenosis remains mild[moderate per report].. Echocardiogram as well as most recent CT of the chest showed intact aortic root graft. Continue low-dose beta umesh as long as no significant side effects. Continue aspirin 81 mg daily for thromboprophylaxis in patient with aortic root graft. If he continues to have frequent ecchymoses, in the future could reduce aspirin to 81 mg every other day but would not discontinue aspirin.. Since his coronary arteries had no significant occlusive disease at the time of catheterization 8 years ago and he is physically active without symptoms,okay to proceed to knee replacement surgery without further testing.As noted, recent echocardiogram showed normal systolic function and only mild aortic stenosis (which should not be hemodynamically significant perioperatively). No change in his current medical regimen. Cardiology followup in one year." History Surgery Operation Date: 03/08/22 08:50 Proposed Procedures p Right Total Knee Arthroplasty - Sang Salazar MD Height/Weight Height: 5 ft 10 in Weight: 86.183 kg Allergies Allergy/AdvReac Type Severity Reaction Status Date / Time thimerosal Allergy Mild Rash Verified 02/10/22 15:50 [From Merthiolate (thimerosal)] Medications Home Medications Medication Instructions Recorded Confirmed Last Taken polyethylene glycol 3350 17 17 g PO DAILY PRN Constipation 05/19/19 03/01/22 01/03/22 23:00 gram/dose oral powder (Miralax) sildenafil 100 mg tablet 100 mg PO DAILY PRN sexual 04/16/21 03/01/22 Unknown activity #20 tabs valacyclovir 500 mg tablet 500 mg PO BID PRN cold sores #10 10/01/21 03/01/22 Unknown (Valtrex) tabs metoprolol tartrate 25 mg tablet 12.5 mg PO BID #90 tabs 11/16/21 03/01/22 02/02/22 07:00 pantoprazole 40 mg tablet,delayed 40 mg PO BID #60 tabs 02/10/22 03/01/22 Unknown release aspirin 81 mg tablet,delayed 81 mg PO HS 03/01/22 03/01/22 Unknown release (Analia Low Dose Aspirin) rosuvastatin 20 mg tablet 20 mg PO HS 03/01/22 03/01/22 Unknown Past Medical History Medical History Aortic stenosis Bicuspid aortic valve. Moderate aortic stenosis (MICHELE 1.5 cm, MG 6.8 mmHg). FOLLOWS WITH DR. JAQUEZ Garza esophagus Bicuspid aortic valve History of gastric ulcer History of melanoma HLD (hyperlipidemia) [place] (hard of hearing) left HTN (hypertension) Schatzki's ring "Mild" in the distal esophagus Past Family History Family History Other COPD (chronic obstructive pulmonary disease) Coronary heart disease No family history of adverse response to anesthesia Prostate cancer Stroke Past Surgical History Surgical History (Updated 03/01/22 @ 10:40 by Meli Mead PA-C) Benign mixed parotid tumor Surgically removed H/O colonoscopy H/O hernia repair Rt inguinal H/O shoulder surgery Rt H/O: hemorrhoidectomy History of esophageal dilatation History of melanoma excision History of tonsillectomy and adenoidectomy History of total knee replacement LEFT 01/04/[address] SALAZAR (STILL IN P.T.) Hx of esophagogastroduodenoscopy Status post aortic arch reconstruction Aortic root replacement (2013) Social History Smoking Status: Never smoker Do You Dip or Chew Tobacco: No Hx Alcohol Use: Yes Alcohol type: beer, wine and hard liquor alcohol intake frequency: a few times a month Hx Substance Use: No substance use type: does not use Lab Results Anesthesia Preop Results Results Anesthesia Widget: WBC 5.45 K/ul (4.8-10.8) 02/28/22 Hgb 14.0 g/dl (14.0-18.0) 02/28/22 Hct 43.7 % (40.1-51.0) 02/28/22 Plt 273 K/uL (130-400) 02/28/22 Na 139 mmol/L (136-145) 02/28/22 K 4.1 mmol/L (3.5-5.1) 02/28/22 Cl 105 mmol/L (98-107) 02/28/22 CO2 28 mmol/L (21-32) 02/28/22 BUN 17 mg/dl (6-23) 02/28/22 Creat 0.69 mg/dl (0.6-1.4) 02/28/22 Glucose Level 94 mg/dl (70-99(Fasting)) 02/28/22 PT 10.7 Seconds (9.0-12.0) 02/28/22 PTT 30.7 Seconds (21.0-31.0) 02/28/22 INR 1.0 (0.9-1.1) 02/28/22 Blood Type O Positive 02/28/22 Antibody Screen NEGATIVE 02/28/22 Testing Electrocardiogram Date: 11/25/21 Normal sinus rhythm at 62 bpm. Minimal voltage criteria for LVH, may be normal variant. Nonspecific T wave abnormality. Chest X-Ray Date: 11/25/21 FINDINGS: The cardiac silhouette is enlarged. Prior median sternotomy. There is no pneumothorax, pleural effusion, airspace consolidation or overt pulmonary edema. Eventration of the right hemidiaphragm. The chronic right middle lobe pulmonary nodule is not well seen by radiography. Degenerative changes of the shoulders and spine. IMPRESSION: No acute process. Echocardiogram Date: 11/17/21 EF 55-60%. No regional motion abnormality. Bicuspid aortic valve. Moderate aortic stenosis (MICHELE 1.5 cm, MG 6.8 mmHg). Mild RAD. Mild MR. Prosthetic aortic root graft intact. Mild progression of aortic stenosis and mild increase in LVH compared to 11/22/2017 study.
[~2022-03-10 05:14] MED LIST changes: -BUPIVACAINE 0.5 % 5 MG/1 ML PF 10ML VIAL ONE; -EPINEPHrine INJ 1 MG/ML AMP ONE; -LR 15ML/HR IV SCH; +LR 500ML BOLUS, THEN 15ML/HR IV SCH; -ROPIVACAINE 0.5% 5 MG/ML 30 ML VIAL ONE
[2022-03-10] MEDS ORDERED: LR 500ML BOLUS, THEN 15ML/HR IV SCH (05:45)
[2022-03-10] MEDS ORDERED: ceFAZolin 2000MG 2,000 MG/15 ML SYR IV SCH (06:00)
[2022-03-10] MEDS ORDERED: FAMOTIDINE 20 MG TAB PO SCH (06:00)
[2022-03-10] MEDS ORDERED: TRANEXAMIC ACID 1,000 MG **IV Intra-op IV SCH (06:00)
[2022-03-10] MEDS ORDERED: ACETAMINOPHEN 500 MG TAB PO SCH (06:00)
[2022-03-10] MEDS ORDERED: BUPIVACAINE LIPOSOME/PF 266 MG, BUPIVACAINE/EPINEPHRINE 50 ML, SODIUM CHLORIDE 0.9% 30 ... INFIL SCH (06:00)
[2022-03-10] MEDS ORDERED: CeleBREX 200 MG CAP PO SCH (06:00)
[2022-03-10] MEDS ORDERED: LR 60ML/HR IV SCH (06:00)
[2022-03-10] MEDS ORDERED: PROPOFOL IV EMULSION 10 MG/ML 20 ML VIAL IV ONE ×2 (06:26→07:46)
[2022-03-10] MEDS ORDERED: MIDAZOLAM HCL 1 MG/ML 2ML VIAL ONE (06:27)
[2022-03-10] MEDS ORDERED: EPINEPHrine INJ 1 MG/ML AMP ONE (06:33)
[2022-03-10] MEDS ORDERED: BUPIVACAINE 0.5 % 5 MG/1 ML PF 10ML VIAL ONE (06:33)
[2022-03-10] MEDS ORDERED: DEXAMETHASONE SOD INJ 4 MG/ML VIAL ONE (06:33)
[2022-03-10] MEDS ORDERED: BUPIVACAINE 0.25% 30 ML VIAL ONE (06:33)
[2022-03-10] MEDS ORDERED: SODIUM CHLORIDE 0.9% PF 50 ML VIAL ONE (06:36)
[2022-03-10] MEDS ORDERED: BUPIVACAINE LIPOSOME 1.3% 266 MG/20 ML VIAL ONE (06:36)
[2022-03-10] MEDS ORDERED: BUPIVACAINE/EPINEPHRINE 0.25% 1:200,000 30 ML VIAL ONE (06:36)
--- NOTE | 2022-03-10 06:56 | History & Physical Bridge Note ---
Date of Service March 10, 2022 History & Physical Bridge Note I have examined the patient, reviewed the History & Physical and in the interval since the performance of the History & Physical I have noted the following changes of clinical significance: no changes noted
[2022-03-10] MEDS ORDERED: fentaNYL citrate 100 MCG/2 ML VIAL IV PRN (07:07)
[2022-03-10] MEDS ORDERED: ONDANSETRON INJ 2 MG/ML 2 ML VIAL IV PRN ×2 (07:07→11:20)
[2022-03-10] MEDS ORDERED: ePHEDrine sulfate 50 MG/ML AMP IV PRN (07:07)
[2022-03-10] MEDS ORDERED: ATROPINE SULFATE 0.1 MG/ML 10ML SYR IV PRN (07:07)
[2022-03-10] MEDS ORDERED: PHENYLEPHRINE HCL 10 MG/ML VIAL ONE (08:39)
--- NOTE | 2022-03-10 09:02 | Operative Report ---
PG Post Operative Report Pre & Post Diagnosis Operation Date: 03/10/22 07:00 Pre-Op Diagnosis: Right Knee Advanced Degenerative Joint Disease Post-Op Diagnosis: Right Knee Advanced Degenerative Joint Disease I identified the patient and participated in the time-out.: Yes Procedure Operation Date: 03/10/22 07:00 Actual Procedures p Right Total Knee Arthroplasty(Right) - Sang Salazar MD Surgeon Sang Salazar MD Newspaper Stuffer Myles Bennett PA-C Estimated Blood Loss 50 Findings Consistent with Post-Op Diagnosis Operative findings real advanced right knee DJD B grade 4 [id number] disease to be extensively throughout the medial and patellofemoral compartments. He had a varus deformity to his knee with a slight flexion contracture. Osteophytes primarily medially and posteriorly. Moderate-sized joint effusion. Fluids 800 cc Specimens Right knee sent for pathology Drains None Anesthesia Type Spinal MAC Complications none Disposition Accompanied Patient To Recovery: No Indications Patient is 76-year-old gentleman with several year history of gradual progressive increasing knee pain discomfort. Been through extensive conservative treatment the past which became less successful. Really starting to limit his lifestyle and his recreational activities. He underwent a left knee replacement 2 months ago and is recovered pretty nicely from this. He elected proceed with right total knee arthroplasty. Description of Procedure Operative implants consist of: 1 Biomet Vanguard size 72.5 right posterior stabilized femoral component. 2. Biomet size 83 tibial tray. 3. 10 mm posterior stabilized polyethylene insert. 4. 34 x 8 and half all Paller patella. The patient was taken the operating, identified, and placed on the operating table supine position but all contact areas were properly padded. IV antibiotics tried by anesthesia team. A spinal anesthetic and been implemented holding area. Lea cath was placed in sterile fashion. Right thigh tent was then placed. The right lower extremities then prepped and draped in usual sterile fashion. The right leg was elevated exsanguinated with use of an Esmarch in terms playset 300 mmHg. An anterior approach of the right knee was then performed to longitudinal incision centered over the patella. Sharp dissection through subcutaneous tissue down the extensor mechanism. A medial parapatellar arthrotomy incision was made. Some subperiosteal dissection was carried out medially. The fat pad was resected from beneath the patella tendon. The lateral patellofemoral ligament was released. Patella subluxated laterally and the knee was flexed. The osteophytes were taken off distal femur. The ACL and PCL were then released from distal femur the tibia subluxated anteriorly. The external tibial alignment jig was then placed the interface activity adjusted 16 mm medially. Proximal tibial cut was made remove about a millimeter bone from most deficient aspect medial tibial plateau. Some osteophytes taken off medial and posterior medially. The tibia was sized to a size 83. Attention drawn the femur. The distal femur stem with a sharp drop with intramedullary canal was suction. A right 6 degree valgus cutting guide was placed. Distal femoral cutting block was pinned in place. Distal femoral cut was made to take an additional 3 mm of bone off distal femur. The femur was then sized to a size 72.5. The AP cutting block was pinned parallel to the epicondylar axis which was 3 degrees of external rotation. The anterior cut, anterior chamfer, posterior cut, posterior chamfer cuts were made. The box cutting guide was placed in just slight lateral and the box cut was made. The knee was flexed. The remnants of the medial and lateral menisci were excised. The osteophytes were taken off the posterior aspect the femur. Trial femoral component was placed. The tibial tray was pinned in maximum external rotation and the drill and stem punch were used to create defect in proximal tibia for the tibial tray. Knee was then trialed and the 10 mm insert fit most appropriately. Attention drawn the patella. The patella was cleaned of all soft tissues. Patella thickness measured 26 mm in thickness was cut down to 15. Was sized to a size 34 patella. The lug holes were drilled for the 34 patella. The lateral osteophyte was removed. Patella button was placed. Knee was taken through range of motion patella tracked nicely with no thumbs test. Attention drawn to place the permanent components. Nupathe all trial components were removed. Bone plug was placed into the distal femur limit blood loss. Double batch Palacos G cement was mixed. A Biomet Vanguard size 72.5 right posterior stabilized femoral component, size 83 tibial tray, a 10 mm posterior stabilized polyethylene insert, and a 34 x 8 and half all Paller patella were then cemented in place. New spreadout into full extension until cement hardened. Final cement check was then performed. Pericapsular tissues were injected with total of 100 cc of combination of 20 cc of Exparel, 30 cc normal saline, 50 cc of quarter percent Marcaine with epinephrine. Patient did receive 1 g tranexamic acid. The tourniquet was let down for final turn time of 61 minutes. Hemostasis assured use electrocautery. Extensor mechanism was closed with combination 1 PDS suture #1 Vicryl suture in [id number] fashion. Extensor mechanism checked found to be intact. Subcutaneous tissue then closed 2 Dexon suture buried fashion skin was closed skin sohan. Leg was then cleaned and dried and sterile dressing was Xeroform, 4 x 4's, sterile cast padding, Eladio bandage applied. Patient then transferred to the recovery room in stable condition. Patient tolerated procedure well and there were no complications. Myles Bennett, my physician speech language pathology assistant, was present for the entire procedure. His assistance was essential and required for appropriate patient positioning, prepping and draping, surgical exposure, performing the technical details of the operation, placement the implants, closure of the wound, and placement of the sterile bandage. I attest to the content of the Intraoperative Record and any orders documented therein. Any exceptions are noted below.
--- NOTE | 2022-03-10 10:33 | XRay Report ---
RIGHT KNEE 2 VIEWS History: Right total knee arthroplasty. Degenerative arthritis. Postop. FINDINGS: The patient is status post a right total knee arthroplasty. The hardware is intact. No frac ture or dislocation. Skin sohan are in place. IMPRESSION: Right total knee arthroplasty. No evidence for hardware complication. ACT 112: Negative or not required by law.. Electronically signed by: Franklin Magallon M.D. 03/10/2022 10:32 AM
[2022-03-10] MEDS ORDERED: NON-FORMULARY MEDICATION (Sildenafil [Viagra] 100 mg tablet) PO PRN (11:20)
[2022-03-10] MEDS ORDERED: TAMSULOSIN HCL 0.4 MG CAP PO PRN (11:20)
[2022-03-10] MEDS ORDERED: NALOXONE HCL 0.4 MG/1 ML VIAL/CARP IV PRN (11:20)
[2022-03-10] MEDS ORDERED: MAGNESIUM HYDROXIDE SUSP 30 ML UDC PO PRN (11:20)
[2022-03-10] MEDS ORDERED: ALUMINUM/MAGNESIUM SUSP 30 ML UDC PO PRN (11:20)
[2022-03-10] MEDS ORDERED: METOCLOPRAMIDE HCL INJ 5 MG/ML 2 ML VIAL IV PRN (11:20)
[2022-03-10] MEDS ORDERED: oxyCODONE HCL IR 5 MG TAB (IMMEDIATE RELEASE) PO PRN (11:20)
[2022-03-10] MEDS ORDERED: POLYETHYLENE (MIRALAX) 17 GM PACK PO PRN (11:20)
[2022-03-10] MEDS ORDERED: HYDROmorphone INJ 0.5 MG/0.5 ML SYR IV PRN (11:20)
[2022-03-10] MEDS ORDERED: bisacodyL 10 MG SUPP PR PRN (11:20)
--- NOTE | 2022-03-10 13:11 | Anesthesiology Progress Note ---
Date of Service March 10, 2022 Anesthesia Post Procedure Vital Signs Vital Signs: Temp Pulse Resp BP Pulse Ox O2 Del Method O2 Flow Rate 03/10/22 13:00 36.4 C L 64 16 158/85 H 99 Room Air 03/10/22 12:30 64 15 148/85 H 100 Room Air 03/10/22 12:10 62 15 133/95 98 Room Air 03/10/22 11:55 57 L 15 154/88 H 99 Room Air 03/10/22 11:40 60 20 152/82 H 100 Room Air 03/10/22 11:25 62 18 143/88 H 97 Room Air 03/10/22 11:10 74 20 112/91 94 Room Air 03/10/22 09:55 78 17 110/72 94 Room Air 0 03/10/22 09:45 61 16 102/68 98 Room Air 0 03/10/22 09:25 63 18 109/51 L 100 Oxymask 2 03/10/22 09:15 64 11 L 101/59 L 98 Oxymask 3 03/10/22 10:55 36.4 C L 63 16 144/66 H 95 Room Air 0 03/10/22 10:45 36.4 C L 68 14 127/90 97 Room Air 0 03/10/22 10:35 36.4 C L 64 14 119/76 98 Room Air 0 03/10/22 10:25 36.4 C L 60 13 130/72 100 Room Air 0 03/10/22 10:15 64 18 125/85 97 Room Air 0 03/10/22 10:05 63 14 123/71 98 Room Air 0 03/10/22 09:35 66 21 116/70 100 Room Air 0 03/10/22 09:05 66 19 112/57 L 99 Oxymask 4 03/10/22 08:55 36.3 C L 62 14 101/56 L 99 Oxymask 5 03/10/22 05:42 36.7 C 72 16 156/86 H 96 Room Air Transfer of Care Handoff Completed per policy Notes Mental Status: alert / awake / arousable Patient Amnestic to Procedure: Yes Nausea / Vomiting: adequately controlled Pain: adequately controlled Airway Patency, RR, SpO2: stable & adequate BP & HR: stable & adequate Hydration State: stable & adequate Neuraxial Anesthesia: was administered and sensory block is resolving Anesthetic Complications: no major complications apparent and Pt Satisfied with anesthetic care
[2022-03-10] MEDS ORDERED: TRANEXAMIC ACID / 0.7% NACL 1,000 MG/100 ML BAG IV SCH (15:00)
[2022-03-10] MEDS: ceFAZolin 2000MG 2,000 MG/15 ML SYR IV SCH ×2 (15:46→23:21)
[2022-03-10] MEDS: ASPIRIN 81 MG ECTAB PO SCH ×2 (15:47→21:29)
[2022-03-10] MEDS: SODIUM CHLORIDE 0.9% 1000ML 1,000 ML IV SCH ×2 (15:47→23:21)
[2022-03-10] MEDS: MULTIVITAMIN TAB PO SCH (15:47)
[2022-03-10] MEDS: DOCUSATE SODIUM 100 MG CAP PO SCH ×2 (15:47→21:36)
[2022-03-10] MEDS: KETOROLAC TROMETHAMINE 15 MG/ML VIAL IV SCH ×3 (15:48→23:23)
[2022-03-10] MEDS: ACETAMINOPHEN 500 MG TAB PO SCH ×2 (15:48→21:36)
[2022-03-10] MEDS: ASCORBIC ACID 500 MG TAB PO SCH (18:31)
[2022-03-10] MEDS ORDERED: SENNA 8.6 MG TAB PO SCH (21:00)
[2022-03-10] MEDS ORDERED: ROSUVASTATIN CALCIUM 20 MG TAB PO SCH (21:00)
[2022-03-10] MEDS: METOPROLOL TARTRATE 25 MG TAB PO SCH (21:29)
[2022-03-10] MEDS: PANTOprazole 40 MG TAB PO SCH (21:30)
[2022-03-11] MEDS: ACETAMINOPHEN 500 MG TAB PO SCH ×2 (05:29→13:34)
[2022-03-11] MEDS: KETOROLAC TROMETHAMINE 15 MG/ML VIAL IV SCH ×2 (05:30→11:23)
[2022-03-11] MEDS ORDERED: dexAMETHasone 10 MG in SYRINGE 0 ML IV SCH (08:00)
[2022-03-11 08:01] LABS: Hematocrit (blood only) 33.6 % (40.1-51.0); Hemoglobin 11.1 g/dl (14.0-18.0); Mean Corpuscular Hemoglobin 29.5 pg (25.0-34.0); Mean Corpuscular Volume 89.4 fL (80.0-100.0); Mean Platelet Volume 9.4 fL (9.4-12.4); Platelet Count 202 K/uL (130-400); RDW Coefficient of Variation 12.7 % (11.5-14.5); RDW Standard Deviation 41.5 fL (36.4-46.3); Red Blood Count 3.76 M/uL (4.63-6.08)
--- NOTE | 2022-03-11 08:15 | Progress Notes ---
DATE OF SERVICE: 03/11/2022. SUBJECTIVE: A 76-year-old gentleman postoperative day 1 from a right knee replacement. He is doing pretty well. Did not get much sleep last night. Not a lot of pain. No chest pain or shortness of b reath. Not feeling dizzy or lightheaded. Says this knee is doing a lot better than his last knee 2 months ago as far as the first 24 hours. OBJECTIVE: VITAL SIGNS: Temperature is 36.4. Vital signs stable. GENERAL: Shows a pleasant, elderly male. He is lying in bed, looks pretty comfortable this morning. LUNGS: Clear to auscultation. HEART: Has a regular rate and rhythm. ABDOMEN: Soft, nontender, nondistended. EXTREMITIES: Grossly neurovascularly intact except as follows: Examination of the right leg reveals the dressing to be clean, dry and intact. He can dorsiflex and plantarflex his foot appropriately. He can do a good straight leg raise. LABORATORY DATA: Labs are pending. ASSESSMENT: A 76-year-old gentleman postoperative day 1 from right knee replacement, doing well. Th is seems to be doing quite a bit better than his previous knee at this point. Pain is controlled. H e is neurologically intact. PLAN: 1. DVT prophylaxis includes thigh-high TEDs, SCDs, and aspirin twice a day. 2. PT, OT, weightbear as tolerated. Right total knee protocol. 3. Pain control, doing okay with current pain regimen. 4. Disposition: Plan to discharge to home with some home health. We will see how therapy goes casper mendez Job ID: [id number]
[2022-03-11 08:37] LABS: BUN Creatinine Ratio 19.4 (10-20); Calcium 8.7 mg/dl (8.5-10.1); Creatinine Clr Calc Pharmacy 87.3 ml/min; Est GFR (African American) 103.6 ml/min; Est GFR (Non-African American) 89.3 ml/min; Potassium 3.8 mmol/L (3.5-5.1)
[2022-03-11] MEDS: ASCORBIC ACID 500 MG TAB PO SCH (08:44)
[2022-03-11] MEDS: MULTIVITAMIN TAB PO SCH (08:44)
[2022-03-11] MEDS: PANTOprazole 40 MG TAB PO SCH (08:44)
[2022-03-11] MEDS: ASPIRIN 81 MG ECTAB PO SCH (08:44)
[2022-03-11] MEDS: METOPROLOL TARTRATE 25 MG TAB PO SCH (08:45)
[2022-03-11] MEDS: DOCUSATE SODIUM 100 MG CAP PO SCH (08:46)
[2022-03-11 15:08] VITALS: TEMP 97.3
[2022-03-11 15:23] VITALS: PULSE 67
[2022-03-11 16:01] VITALS: BP 175/90; O2SAT 96
--- NOTE | 2022-03-14 10:32 | Discharge Summary ---
Date of Service March 14, 2022 Discharge Data Procedures Performed Operation Date: 03/10/22 07:00 Actual Procedures p Right Total Knee Arthroplasty(Right) - Sang Salazar MD Hospital Course (1) Status post total right knee replacement: This is a 76 year old patient admitted on 03/10/22 and underwent total knee arthroplasty. He tolerated the procedure well and there were no complications. T ransferred to the PACU post op and later to the orthopedic floor for further care. He was given ancef for antibiotic prophylaxis. He was also given CATE stockings, SCDs, and aspirin for DVT prophylaxis. Hemoglobin, hematocrit, and vital signs were monitored during his hospital stay and remained stable. Did not require any blood transfusions. There were no complications during his hospital stay. By post op day #1 the patient was tolerating a regular diet, pain was reasonably controlled with oral pain medicine, and he was participating in physical therapy. On post op day #1 the patient was discharged home and set up with home health care. He was given printed discharge instructions including prescriptions for extra strength tylenol, aspirin, toradol, and oxycodone. Continue physical therapy, weight bearing as tolerated. Continue CATE stockings. Follow up approximately 2 weeks post op or sooner if there are problems or concerns. Coding Level of Care Code None Diagnoses Status post total right knee replacement Z96.651
== END 2022-03-11 17:28 | disposition home health service (06) ==
LOC: PACUINP 05:14 → ASU 05:14 → 3E 14:11
DX: M17.11 Unilateral primary osteoarthritis, right knee; Z79.899 Other long term (current) drug therapy; Z88.8 Allergy status to other drugs, medicaments and biological substances; Z79.82 Long term (current) use of aspirin